=== PATIENT | female | born 2000 | race Caucasian/White ===

== ENCOUNTER 2020-12-29 04:00 | Inpatient (IN) ==
[2021-01-01] MEDS ORDERED: *HR* Nalbuphine 10 MG/ML AMPUL IV PRN (05:44)
[2021-01-01] MEDS ORDERED: Famotidine 20 MG/2 ML VIAL IVP PRN (05:44)
[2021-01-01] MEDS ORDERED: Ondansetron 4 MG/2 ML VIAL IVP PRN (05:44)
[2021-01-01] MEDS ORDERED: Metoclopramide 10 MG/2 ML VIAL IVP PRN (05:44)
[2021-01-01] MEDS ORDERED: Lidocaine 1% 20 ML MDV INFILT PRN (05:44)
[2021-01-01] MEDS ORDERED: Naloxone 0.4 MG/ML INJ IVP PRN (05:44)
[2021-01-01] MEDS ORDERED: miSOPROStoL 25 MCG TABLET PO PRN (05:47)
[2021-01-01 06:28] LABS: Basophils % 0.3 %; Eosinophils # 0.2 K/mcL (0.0-0.6); Eosinophils % 1.9 %; Hematocrit 30.4 % (35.3-44.9); Hemoglobin 9.4 g/dL (11.5-15.4); Immature Granulocytes % 0.4 % (0-4); Lymphocytes # 1.8 K/mcL (0.6-4.6); Lymphocytes % 17.8 %; Mean Corpuscular HGB Conc 30.9 g/dL (31.6-35.5); Mean Corpuscular Hemoglobin 24.5 pg (28.0-33.3); Mean Corpuscular Volume 79.4 fL (83.0-100.0); Mean Platelet Volume 10.8 fL (9.4-12.4); Monocytes # 0.7 K/mcL (0.0-1.3); Monocytes % 6.7 %; Neutrophils # 7.3 K/mcL (1.6-8.9); Platelet Count 268 K/mcL (140-400); Red Blood Count 3.83 M/mcL (3.82-4.97); Red Cell Distribution Width 14.5 % (11.5-14.5); Segmented Neutrophils % 72.9 %
[2021-01-01 07:09] LABS: Influenza A PCR Negative (Negative); Influenza B PCR Negative (Negative); Resp. Syncytial Virus PCR Negative (Negative)
[2021-01-01 08:28] LABS: Amphetamine Screen,Urine Negative ng/mL (Cutoff=1000); Barbiturate Screen,Urine Negative ng/mL (Cutoff=200); Benzodiazepines Screen,Urine Negative ng/mL (Cutoff=200); Cannabinoid Screen,Urine Negative ng/mL (Cutoff = 50); Cocaine Screen,Urine Negative ng/mL (Cutoff= 300); Opiate Screen,Urine Negative ng/mL (Cutoff=300); Phencyclidine Screen,Urine Negative ng/mL (Cutoff=25)
[2021-01-01] MEDS ORDERED: *HR* FentaNYL (PF) 100 MCG/2 ML VIAL EP ONE (08:57)
[2021-01-01] MEDS ORDERED: Ropivacaine/PF 0.2% 20 ML VIAL EP ONE (08:57)
[2021-01-01] MEDS ORDERED: EPHEDrine 50 MG/ML VIAL IVP PRN (08:57)
[2021-01-01] MEDS ORDERED: Epidural Premix (fent/bupiv) 110 ML EP SCH (09:00)
[2021-01-01 09:09] LABS: SARS-CoV-2 by PCR (In House) Negative (Negative)
[2021-01-01] MEDS ORDERED: Oxytocin 20 units/ LR 1000 mL 20 UNIT/1,000 ML BAG IVC SCH (10:45)
[2021-01-01] MEDS: Ringers Solution, Lactated 1,000 ML IVC SCH (11:06)
[2021-01-02] MEDS ORDERED: *HR* FentaNYL (PF) 100 MCG/2 ML VIAL ONE ×4 (02:04→20:35)
[2021-01-02] MEDS ORDERED: Ropivacaine/PF 0.2% 20 ML VIAL ONE (02:04)
[2021-01-02] MEDS: Ringers Solution, Lactated 1,000 ML IVC SCH (08:20)
[2021-01-02] MEDS ORDERED: miSOPROStoL 100 MCG TABLET RC ONE (13:19)
[2021-01-02] MEDS ORDERED: Oxytocin 20 units/ LR 1000 mL 20 UNIT/1,000 ML BAG IVC ONE ×2 (15:12→22:38)
[2021-01-02] MEDS ORDERED: Oxytocin 20 units/ LR 1000 mL 20 UNIT/1,000 ML BAG IVC SCH (22:38)
[2021-01-02] MEDS ORDERED: Rho Immune Globulin 1,500 UNIT SYRINGE IM PRN (22:38)
[2021-01-02] MEDS ORDERED: Measles/Mumps/Rubella Vacc 0.5 ML VIAL SQ PRN (22:38)
[2021-01-02] MEDS ORDERED: Benzocaine/Menthol 56 GM AEROSOL SPRAY TP PRN (22:38)
[2021-01-02] MEDS ORDERED: *HR* HYDROcodone/Acet 5/325 mg TABLET PO PRN (22:38)
[2021-01-02] MEDS: Ibuprofen 600 MG TABLET PO PRN (23:58)
[2021-01-03] MEDS ORDERED: Ampicillin 2,000 MG in 0.9 % Sodium Chloride Mini Bag 100 ML IVPB ONE (01:03)
[2021-01-03] MEDS ORDERED: GENTAMICIN IVPB SCH (02:00)
[2021-01-03] MEDS ORDERED: SODIUM CHLORIDE 0.9% IVPB SCH (02:00)
[2021-01-03 02:40] LABS: Basophils % 0.1 %; Eosinophils # 0.1 K/mcL (0.0-0.6); Eosinophils % 0.3 %; Hematocrit 22.1 % (35.3-44.9); Immature Granulocytes % 0.9 % (0-4); Lymphocytes # 1.6 K/mcL (0.6-4.6); Lymphocytes % 6.9 %; Mean Corpuscular HGB Conc 31.7 g/dL (31.6-35.5); Mean Corpuscular Hemoglobin 24.7 pg (28.0-33.3); Mean Corpuscular Volume 78.1 fL (83.0-100.0); Mean Platelet Volume 10.6 fL (9.4-12.4); Monocytes # 1.5 K/mcL (0.0-1.3); Monocytes % 6.2 %; Neutrophils # 20.4 K/mcL (1.6-8.9); Platelet Count 210 K/mcL (140-400); Red Blood Count 2.83 M/mcL (3.82-4.97); Red Cell Distribution Width 14.6 % (11.5-14.5); Segmented Neutrophils % 85.6 %; White Blood Count 23.8 K/mcL (4.3-11.1)
[2021-01-03] MEDS: Acetaminophen 325 MG TABLET PO PRN ×2 (02:57→15:02)
[2021-01-03] MEDS: Ampicillin 1,000 MG in 0.9 % Sodium Chloride Mini Bag 100 ML IVPB SCH ×5 (06:43→21:49)
[2021-01-03] MEDS: Ibuprofen 600 MG TABLET PO PRN ×3 (06:43→21:48)
[2021-01-03] MEDS: Prenatal Vit/FA 1 EACH TABLET PO SCH (07:55)
[2021-01-03] MEDS ORDERED: Ferumoxytol 510 MG in 0.9 % Sodium Chloride 100 ML IVPB ONE (10:03)
[2021-01-03] MEDS: SODIUM CHLORIDE 0.9% IVPB SCH ×2 (12:01→20:05)
[2021-01-03] MEDS: GENTAMICIN IVPB SCH ×2 (12:01→20:05)
[2021-01-03] MEDS ORDERED: 0.9 % Sodium Chloride 250 ML ONE (20:07)
[2021-01-04] MEDS: Ampicillin 1,000 MG in 0.9 % Sodium Chloride Mini Bag 100 ML IVPB SCH ×5 (01:12→18:12)
[2021-01-04] MEDS: Acetaminophen 325 MG TABLET PO PRN ×3 (01:12→22:27)
[2021-01-04 04:55] LABS: Basophils % 0.2 %; Eosinophils # 0.3 K/mcL (0.0-0.6); Eosinophils % 2.2 %; Hematocrit 19.7 % (35.3-44.9); Hemoglobin 6.2 g/dL (11.5-15.4); Immature Granulocytes % 0.7 % (0-4); Lymphocytes # 1.7 K/mcL (0.6-4.6); Lymphocytes % 11.6 %; Mean Corpuscular HGB Conc 31.5 g/dL (31.6-35.5); Mean Corpuscular Volume 79.4 fL (83.0-100.0); Mean Platelet Volume 10.5 fL (9.4-12.4); Monocytes % 6.6 %; Neutrophils # 11.7 K/mcL (1.6-8.9); Platelet Count 197 K/mcL (140-400); Red Blood Count 2.48 M/mcL (3.82-4.97); Red Cell Distribution Width 14.8 % (11.5-14.5); Segmented Neutrophils % 78.7 %; White Blood Count 14.9 K/mcL (4.3-11.1)
[2021-01-04] MEDS: Ibuprofen 600 MG TABLET PO PRN ×3 (05:51→22:27)
[2021-01-04] MEDS: GENTAMICIN IVPB SCH ×2 (06:34→13:16)
[2021-01-04] MEDS: SODIUM CHLORIDE 0.9% IVPB SCH ×2 (06:34→13:16)
[2021-01-04] MEDS: Prenatal Vit/FA 1 EACH TABLET PO SCH (08:00)
[2021-01-04] MEDS ORDERED: 0.9 % Sodium Chloride 250 ML ONE ×2 (09:00→15:19)
[2021-01-05 05:57] LABS: Basophils % 0.3 %; Eosinophils # 0.3 K/mcL (0.0-0.6); Eosinophils % 2.9 %; Hematocrit 25.7 % (35.3-44.9); Immature Granulocytes % 0.9 % (0-4); Lymphocytes % 17.8 %; Mean Corpuscular HGB Conc 31.9 g/dL (31.6-35.5); Mean Corpuscular Hemoglobin 25.9 pg (28.0-33.3); Mean Corpuscular Volume 81.3 fL (83.0-100.0); Mean Platelet Volume 10.4 fL (9.4-12.4); Monocytes # 0.7 K/mcL (0.0-1.3); Monocytes % 6.5 %; Neutrophils # 8.2 K/mcL (1.6-8.9); Platelet Count 228 K/mcL (140-400); Red Blood Count 3.16 M/mcL (3.82-4.97); Red Cell Distribution Width 14.7 % (11.5-14.5); Segmented Neutrophils % 71.6 %; White Blood Count 11.5 K/mcL (4.3-11.1)
[2021-01-05 06:02] LABS: Hemoglobin 8.2 g/dL (11.5-15.4)
[2021-01-05 08:02] VITALS: BP 112/73; PULSE 83; TEMP 97.4; O2SAT 100
[2021-01-05] MEDS: Prenatal Vit/FA 1 EACH TABLET PO SCH (09:37)
[2021-01-05] MEDS: Acetaminophen 325 MG TABLET PO PRN (09:37)
[2021-01-05] MEDS: Ibuprofen 600 MG TABLET PO PRN (09:38)
== END 2021-01-05 15:25 | disposition home or self-care (01) | DRG 768 ==
LOC: 1NENULAB 01-01 05:41 → 1NENUOBS 01-02 22:38
PROVIDERS: ADMIT Student in an Organized Health Care Education/Training Program; ATTEND Student in an Organized Health Care Education/Training Program